=== PATIENT | female | born 1995 | race Caucasian/White ===

== ENCOUNTER → 2017-08-28 | Outpatient (CLI) | payer OTHER | LOC: BMCIMAGING 13:31 | PROVIDERS: ATTEND Internal Medicine | DX: Z03.89 Encounter for observation for other suspected diseases and conditions ruled out (principal); M79.662 Pain in left lower leg ==

== ENCOUNTER → 2017-09-20 | Outpatient (CLI) | payer OTHER | LOC: BMCIMAGING 10:41 | PROVIDERS: ATTEND Allergy & Immunology Allergy | DX: R50.9 Fever, unspecified (principal) ==

== ENCOUNTER 2018-11-27 01:08 | Emergency (ER) | payer OTHER ==
[2018-11-27 01:15] VITALS: BP 155/98
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
[2018-11-27] MEDS ORDERED: ACETAMINOPHEN 500 MG TAB PO ONE (01:31)
== END 2018-11-27 02:11 | disposition home or self-care (01) ==
DX: S02.2XXA Fracture of nasal bones, initial encounter for closed fracture (principal); A69.20 Lyme disease, unspecified; E03.9 Hypothyroidism, unspecified; W50.0XXA Accidental hit or strike by another person, initial encounter; Y92.9 Unspecified place or not applicable; Y93.41 Activity, dancing; Y99.9 Unspecified external cause status